=== PATIENT | female | born 1965 | race Two or more races ===

== ENCOUNTER 2021-08-08 16:33 | Emergency (ER) | payer OTHER ==
[~2021-08-08] VITALS: Ht 162.6 cm; Wt 101.2 kg
[2021-08-08] MEDS ORDERED: BACTRIM DS TAB1 EACH PO (18:55)
== END 2021-08-08 19:10 | disposition home or self-care (01) ==
LOC: ER 16:33
DX: N39.0 Urinary tract infection, site not specified (principal)

== ENCOUNTER 2021-08-18 07:54 | Emergency (ER) | payer OTHER ==
[~2021-08-18] VITALS: Ht 162.6 cm; Wt 100.7 kg
[~2021-08-18 07:54] MED LIST: BACTRIM DS TAB1 EACH PO
[2021-08-18] MEDS ORDERED: ZYRTEC10 M3 PO (14:15)
[2021-08-18] MEDS ORDERED: MEDROLPACK PO (14:15)
[2021-08-18] MEDS ORDERED: ATARAX25 MG PO (14:15)
== END 2021-08-18 14:56 | disposition home or self-care (01) ==
LOC: ER 07:54
DX: R21 Rash and other nonspecific skin eruption (principal)